=== PATIENT | female | born 1995 | race Caucasian/White ===

== ENCOUNTER 2018-03-27 05:15 | Emergency (ER) | payer OTHER ==
[~2018-03-27] VITALS: Ht 170.2 cm; Wt 90.4 kg
[2018-03-27] MEDS ORDERED: DIPHENHYDRAMINE 50 MG/ML, 1ML ONE (05:56)
[2018-03-27] MEDS ORDERED: KETOROLAC 30 MG/1 ML ONE (05:57)
[2018-03-27] MEDS ORDERED: METOCLOPRAMIDE 5 MG/ML, 2ML ONE (05:57)
[2018-03-27] MEDS ORDERED: DIPHENHYDRAMINE 50 MG/ML, 1ML IVPush ONE (06:00)
[2018-03-27] MEDS ORDERED: SODIUM CHLORIDE 0.9% 1,000ML IVBOLUS ONE (06:00)
[2018-03-27] MEDS ORDERED: SODIUM CHLORIDE FLUSH 10ML SYR IVF ONE (06:00)
[2018-03-27] MEDS ORDERED: METOCLOPRAMIDE 5 MG/ML, 2ML IVPush ONE (06:00)
[2018-03-27] MEDS ORDERED: KETOROLAC 30 MG/1 ML IVPush ONE (06:00)
[2018-03-27] MEDS ORDERED: DIAZEPAM 5 MG/ML, 10ML VIAL IV ONE (07:00)
[2018-03-27 08:16] VITALS: BP 116/54
== END 2018-03-27 08:20 | disposition home or self-care (01) ==
LOC: ED 06:47
DX: G44.229 Chronic tension-type headache, not intractable (principal); F17.200 Nicotine dependence, unspecified, uncomplicated; G43.909 Migraine, unspecified, not intractable, without status migrainosus; Z88.6 Allergy status to analgesic agent
CPT/HCPCS: 96374; 96375; 99285; J1200; J1885; J2765; J3360; J7030